=== PATIENT | female | born 1945 | race Caucasian/White ===

== ENCOUNTER 2018-04-11 20:41 | Emergency (ER) | payer MEDICARE, BC ==
[~2018-04-11] VITALS: Ht 165.1 cm; Wt 59.0 kg
[~2018-04-11 20:41] MED LIST: AMBIEN; ARMOUR THYROID30 MG PO; ATARAX25 MG PO; ELIMITE 5% CREA60 GM EXT; GABAPENTIN300 MG ORAL; HALCION; LEVOFLOXACIN500 MG ORAL; NAPROXEN500 M2 ORAL; PROZAC; RESTORIL7.5 MG PO; SUBUTEX2 MG SL; [UNRECOGNIZED DRUG - OTHER]
[2018-04-11 20:45] VITALS: BP 146/76
--- NOTE | 2018-04-11 21:06 | Emergency Room Report ---
History of Present Illness General Chief Complaint: Skin Rash/Abscess Source: Patient Present Illness HPI Is a 72-year-old female with cardiac history. She presents with chief complaint of a rash and itching all over. Onset several days. She saw her laser specialist the other day. Was prescribed something for eczema. Now the rash started on her legs now throughout her body. Unable to sleep last night because of itching. Benadryl keep her up. No nausea no vomiting. No fever chills. No new medication. Denies any other complaint. Scratching Makes it worse. Allergies: Coded Allergies: PROCHLORPERAZINE (Unverified Allergy, 09/08/13) PROCHLORPERAZINE EDISYLATE (Verified Allergy, Itching, 05/23/12) PROCHLORPERAZINE MALEATE (Verified Allergy, Itching, 05/23/12) Patient History Past Medical History: see triage record, old chart reviewed, CAD Past Surgical History: pacemaker Pertinent Family History: none Social History: Denies: smoking Now: No Immunizations: other Reviewed Nursing Documentation: PMH: Agreed; PSxH: Agreed Nursing Documentation-PMH Hx Cardiac Problems: Yes Hx Pacemaker: Yes - 1999 Hx Cancer: No Hx Gastrointestinal Problems: Yes Hx Neurological Problems: Yes Hx Head Trauma: Yes - Concussions, skull fracture, subdural hematoma Hx Neurologic Surgery: Yes Review of Systems Eye: Denies: eye pain, blurred vision ENT: Denies: ear pain, nose congestion, throat swelling Respiratory: Denies: cough, shortness of breath Cardiovascular: Denies: chest pain, palpitations Gastrointestinal: Denies: abdominal pain, diarrhea, nausea, vomiting Musculoskeletal: Denies: back pain, joint pain Skin: Reports: rash Neurological: Denies: headache, numbness Endocrine: Denies: increased thirst, increased urine Hematologic/Lymphatic: Denies: easy bruising All Other Systems: negative except mentioned in HPI Physical Exam Vital Signs Date Time Temp Pulse Resp B/P (MAP) Pulse Ox O2 Delivery O2 Flow Rate FiO2 04/11/18 20:43 98.3 82 16 146/76 96 Room Air 98.2 vitals normal Sp02 EP Interpretation: reviewed, normal General Appearance: well appearing, no apparent distress, alert Head: normocephalic, atraumatic Eyes: bilateral eye PERRL, bilateral eye EOMI ENT: hearing grossly normal, normal pharynx Neck: full range of motion, supple, no meningismus Respiratory: chest non-tender, lungs clear, normal breath sounds Cardiovascular #1: regular rate, rhythm, no murmur Gastrointestinal: normal bowel sounds, non tender, no mass, no organomegaly, no bruit, non-distended Musculoskeletal: back normal, gait/station normal, normal range of motion Neurologic: alert, oriented x3 Psychiatric: mood/affect normal Skin: warm/dry, other - Patient with scatter small pinpoint petechiae mostly her legs and torso. No purpura. Medical Decision Making Diagnostic Impression: Primary Impression: Other pruritus Additional Impression: Rash and other nonspecific skin eruption ER Course Patient with itching and small scattered petechial rash. CBC showed elevation of monocyte count, eosinophil count. This may point towards allergic/viral etiology. No evidence of anaphylaxis. No evidence of meningitis. No bacterial infection. We'll discharge home. Last Vital Signs Date Time Temp Pulse Resp B/P (MAP) Pulse Ox O2 Delivery O2 Flow Rate FiO2 04/11/18 20:45 98.2 85 16 146/76 96 Room Air 98.2 Status: improved Disposition: HOME, SELF-CARE Condition: Stable Scripts Prednisone* (PREDNISONE*) 20 Mg Tablet 40 MG ORAL DAILY for 5 Days, TAB Prov: LONI AGUIRRE M.D. 04/11/18 Loratadine (CLARITIN) 10 Mg Capsule 10 MG ORAL DAILY, #30 CAP Prov: LONI AGUIRRE M.D. 04/11/18 Additional Instructions: Follow-up with your laser specialist on Thursday. Return if symptom worsen. LONI AGUIRRE M.D. Apr 11, 2018 21:06
[2018-04-11] MEDS ORDERED: Solu-MEDROL 125mg Inj IVP ONE (21:15)
[2018-04-11] MEDS ORDERED: HydrOXYzine 50mg tab ORAL ONE (21:15)
[2018-04-11 21:25] LABS: BASOPHILS % (AUTO) 2.4 % (0.0-2.0); HEMOGLOBIN 14.7 G/DL (12.0-16.0); LYMPHOCYTES % (AUTO) 15.6 % (20.0-45.0); MEAN CORPUSCULAR VOLUME 88 FL (80-99); MONOCYTES % (AUTO) 14.3 % (1.0-10.0); NEUTROPHILS % (AUTO) 61.7 % (45.0-75.0); PLATELET COUNT 332 K/UL (150-450); RED BLOOD COUNT 4.55 M/UL (4.20-5.40); RED CELL DISTRIBUTION WIDTH 10.4 % (11.6-14.8); WHITE BLOOD COUNT 6.1 K/UL (4.8-10.8)
[2018-04-11 21:36] LABS: ANION GAP 8 mmol/L (5-15); BLOOD UREA NITROGEN 8 mg/dL (7-18); CALCIUM 9.9 MG/DL (8.5-10.1); CARBON DIOXIDE 29 MMOL/L (21-32); CHLORIDE 100 MMOL/L (98-107); CREATININE 0.6 MG/DL (0.55-1.30); POTASSIUM 4.2 MMOL/L (3.5-5.1); SODIUM 137 MMOL/L (136-145)
[2018-04-11 21:41] LABS: ALANINE AMINOTRANSFERASE 25 U/L (12-78); ALBUMIN 4.3 G/DL (3.4-5.0); ALBUMIN/GLOBULIN RATIO 1.2 (1.0-2.7); ALKALINE PHOSPHATASE 83 U/L (46-116); ASPARTATE AMINO TRANSFERASE 45 U/L (15-37); BILIRUBIN,TOTAL 0.6 MG/DL (0.2-1.0)
[2018-04-11] MEDS ORDERED: PREDNISONE20 MG ORAL (21:50)
[2018-04-11] MEDS ORDERED: CLARITIN10 M2 ORAL (21:50)
[2018-04-11 21:54] VITALS: BP 146/76
== END 2018-04-11 21:55 | disposition home or self-care (01) ==
LOC: EMR 21:24
DX: L29.8 Other pruritus (principal); R21 Rash and other nonspecific skin eruption; Z88.8 Allergy status to other drugs, medicaments and biological substances; Z95.0 Presence of cardiac pacemaker; I99.8 Other disorder of circulatory system; Z98.890 Other specified postprocedural states
CPT/HCPCS: 36415; 80053; 85025; 96374; 99284; J2930

== ENCOUNTER 2019-04-12 19:16 | Emergency (ER) | payer MEDICARE, BC ==
[~2019-04-12] VITALS: Ht 165.1 cm; Wt 59.0 kg
[~2019-04-12 19:16] MED LIST changes: +CLARITIN10 M2 ORAL; +PREDNISONE20 MG ORAL
[2019-04-12 19:45] VITALS: BP 154/82
--- NOTE | 2019-04-12 20:11 | Emergency Room Report ---
History of Present Illness General Chief Complaint: Abdominal Pain Source: Patient Present Illness HPI Disclaimer: Please note that this report is being documented using [employer] technology. This can lead to erroneous entry secondary to incorrect interpretation by the dictating instrument. HPI: 73-year-old female currently undergoing treatment for lymphoma presents for evaluation of abdominal pain. Patient noted periumbilical pain over the last few days that intensified to a 10/10 today. She was previously seen last week at her PMDs office complaining of bilateral lower flank pain however blood work and urinalysis were unremarkable. She went to an PROCESSING SUPERVISOR earlier today for some lower pelvic and periumbilical pain where an ultrasound was performed showing no significant abnormalities. Her pain became worse and she was directed to the emergency department at the request of her physician. She denies any recent fevers, chills, chest pain, shortness of breath. Denies vomiting or diarrhea. She does note nausea and inability to eat. Currently her pain is minimal however states that it was 10 out of 10 earlier. PMH: Hepatitis A, B, C status post treatment. PSH: hip replacement Allergies: Phenergan Social Hx: Denies drug or alcohol abuse Allergies: Coded Allergies: PROCHLORPERAZINE (Unverified Allergy, Unknown, 04/12/19) PROCHLORPERAZINE EDISYLATE (Verified Allergy, Unknown, Itching, 04/12/19) PROCHLORPERAZINE MALEATE (Verified Allergy, Unknown, Itching, 04/12/19) Patient History Now: No Nursing Documentation-PMH Past Medical History: No History, Except For Hx Cardiac Problems: Yes Hx Pacemaker: Yes - 1999 Hx Cancer: No Hx Gastrointestinal Problems: Yes Hx Neurological Problems: Yes Hx Head Trauma: Yes - Concussions, skull fracture, subdural hematoma Hx Neurologic Surgery: Yes Review of Systems All Other Systems: negative except mentioned in HPI Physical Exam Vital Signs Date Time Temp Pulse Resp B/P (MAP) Pulse Ox O2 Delivery O2 Flow Rate FiO2 04/12/19 19:17 97.9 62 18 154/82 (106) 98 Room Air General: Awake and alert, no acute distress HEENT: NC/AT. EOMI. Cardiovascular: RRR. S1 and S2 normal. No murmur appreciated Resp: Normal work of breathing. No cough, wheezing or crackles appreciated Abdomen: Abdomen is soft, nondistended. Only mild tenderness over the lower quadrants and periumbilical region bilaterally. No rebound. No Rovsing sign. No pain with percussion Skin: Intact. No abrasions, laceration or rash over the exposed skin MSK: Normal tone and bulk. Moving all extremities. No obvious deformity. Neuro: Awake and alert. Mentating appropriately. Medical Decision Making Diagnostic Impression: Primary Impression: Abdominal pain ER Course 73-year-old female presents for evaluation of abdominal pain. Differential includes but is not limited to obstruction, gastritis, gastroenteritis, metastasis, constipation, appendicitis, cholecystitis, diverticulitis. Patient is already undergone a pelvic ultrasound without significant findings. Will obtain a CT scan of the abdomen with IV contrast. Lab work is pending. The patient's pain is currently well controlled. She will receive IV fluids. Laboratory Tests Test 04/12/19 19:30 White Blood Count 5.6 K/UL (4.8-10.8) Red Blood Count 4.37 M/UL (4.20-5.40) Hemoglobin 13.8 G/DL (12.0-16.0) Hematocrit 38.5 % (37.0-47.0) Mean Corpuscular Volume 88 FL (80-99) Mean Corpuscular Hemoglobin 31.7 PG (27.0-31.0) H Mean Corpuscular Hemoglobin Concent 36.0 G/DL (32.0-36.0) Red Cell Distribution Width 10.5 % (11.6-14.8) L Platelet Count 247 K/UL (150-450) Mean Platelet Volume 5.3 FL (6.5-10.1) L Neutrophils (%) (Auto) 69.1 % (45.0-75.0) Lymphocytes (%) (Auto) 13.1 % (20.0-45.0) L Monocytes (%) (Auto) 12.0 % (1.0-10.0) H Eosinophils (%) (Auto) 3.0 % (0.0-3.0) Basophils (%) (Auto) 2.8 % (0.0-2.0) H Urine Color Pale yellow Urine Appearance Clear Urine pH 8 (4.5-8.0) Urine Specific [place] 1.010 (1.005-1.035) Urine Protein Negative (NEGATIVE) Urine Glucose (UA) Negative (NEGATIVE) Urine Ketones Negative (NEGATIVE) Urine Blood Negative (NEGATIVE) Urine Nitrite Negative (NEGATIVE) Urine Bilirubin Negative (NEGATIVE) Urine Urobilinogen Normal MG/DL (0.0-1.0) Urine Leukocyte Esterase Negative (NEGATIVE) Sodium Level 143 MMOL/L (136-145) Potassium Level 3.6 MMOL/L (3.5-5.1) Chloride Level 105 MMOL/L (98-107) Carbon Dioxide Level 26 MMOL/L (21-32) Anion Gap 12 mmol/L (5-15) Blood Urea Nitrogen 6 mg/dL (7-18) L Creatinine 0.7 MG/DL (0.55-1.30) Estimate Glomerular Filtration Rate mL/min (>60) Glucose Level 132 MG/DL (74-106) H Calcium Level 9.6 MG/DL (8.5-10.1) Total Bilirubin 0.5 MG/DL (0.2-1.0) Aspartate Amino Transferase (AST) 27 U/L (15-37) Alanine Aminotransferase (ALT) 22 U/L (12-78) Alkaline Phosphatase 85 U/L (46-116) Total Protein 7.1 G/DL (6.4-8.2) Albumin 4.0 G/DL (3.4-5.0) Globulin 3.1 g/dL Albumin/Globulin Ratio 1.3 (1.0-2.7) Lipase 76 U/L (73-393) Last Vital Signs Date Time Temp Pulse Resp B/P (MAP) Pulse Ox O2 Delivery O2 Flow Rate FiO2 04/12/19 19:45 97.9 61 18 154/82 98 Room Air Status: improved Reevaluation Impression CT scan found no evidence of obstruction, mass, appendicitis or other acute significant pathology. There was some hepatic congestion though this may be secondary to the patient's previous hepatitis infections. She can follow-up with her outpatient. She did have a moderate amount of stool burden and may be expensing gas pain or constipation pain. Will start on MiraLAX and will discharge home with close follow-up with PMD and her veneer jointer helper. We discussed reasons to return to the emergency department. She understands and agrees with this treatment plan. Disposition: HOME, SELF-CARE Condition: Stable Scripts Polyethylene Glycol 3350* (MIRALAX*) 17 Gm Powd.pack 17 GM ORAL DAILY for 10 Days, PACKET Prov: James Burgos MD 04/12/19 James Burgos MD Apr 12, 2019 20:11
[2019-04-12] MEDS ORDERED: Isovue-300 100ml vial INJ PRN (20:15)
[2019-04-12] MEDS ORDERED: Morphine Sulfate 4mg/ml Inj (IV USE ONLY) IVP ONE (20:15)
[2019-04-12 20:16] LABS: BASOPHILS % (AUTO) 2.8 % (0.0-2.0); HEMATOCRIT 38.5 % (37.0-47.0); HEMOGLOBIN 13.8 G/DL (12.0-16.0); LYMPHOCYTES % (AUTO) 13.1 % (20.0-45.0); MEAN CORPUSCULAR VOLUME 88 FL (80-99); NEUTROPHILS % (AUTO) 69.1 % (45.0-75.0); PLATELET COUNT 247 K/UL (150-450); RED BLOOD COUNT 4.37 M/UL (4.20-5.40); RED CELL DISTRIBUTION WIDTH 10.5 % (11.6-14.8); WHITE BLOOD COUNT 5.6 K/UL (4.8-10.8)
[2019-04-12 20:17] LABS: APPEARANCE,URINE CLEAR; BILIRUBIN, URINE NEGATIVE (NEGATIVE); COLOR,URINE PALE YELLOW; GLUCOSE, URINE (UA) NEGATIVE (NEGATIVE); KETONES,URINE NEGATIVE (NEGATIVE); LEUKOCYTE ESTERASE ,URINE NEGATIVE (NEGATIVE); NITRITE,URINE NEGATIVE (NEGATIVE); PH,URINE 8 (4.5-8.0); PROTEIN,URINE NEGATIVE (NEGATIVE); UROBILINOGEN,URINE NORMAL MG/DL (0.0-1.0)
[2019-04-12 20:20] LABS: ANION GAP 12 mmol/L (5-15); BLOOD UREA NITROGEN 6 mg/dL (7-18); CALCIUM 9.6 MG/DL (8.5-10.1); CARBON DIOXIDE 26 MMOL/L (21-32); CHLORIDE 105 MMOL/L (98-107); CREATININE 0.7 MG/DL (0.55-1.30); POTASSIUM 3.6 MMOL/L (3.5-5.1); SODIUM 143 MMOL/L (136-145)
[2019-04-12 20:26] LABS: ALANINE AMINOTRANSFERASE 22 U/L (12-78); ALBUMIN/GLOBULIN RATIO 1.3 (1.0-2.7); ALKALINE PHOSPHATASE 85 U/L (46-116); ASPARTATE AMINO TRANSFERASE 27 U/L (15-37); BILIRUBIN,TOTAL 0.5 MG/DL (0.2-1.0)
--- NOTE | 2019-04-12 21:00 | Diagnostic Imaging Report ---
Clinical Indication: Abdominal pain, periumbilical pain over the last few days, 10 out of 10, history of treatment for lymphoma Technique: No oral contrast utilized, per emergency room physician request IV administration nonionic contrast. Venous phase spiral acquisition obtained through the abdomen and pelvis. Multiplanar reconstructions were generated. Total dose length product 552.58 mGycm. CTDIvol(s) 11.66 mGy. Dose reduction achieved using automated exposure control Comparison: none Findings: The appendix is normal. No evidence of diverticulosis or diverticulitis. Distal small bowel loops are mildly prominent, fluid-filled. No ricky small bowel distention. No free or loculated intraperitoneal gas or fluid is evident. There is a small sliding-type hiatal hernia. Distal esophagus and stomach otherwise unremarkable. There is wall thickening and slight focal distention of the distal duodenum. The liver demonstrates a cyst in segment IVb. The parenchyma is heterogeneous. There is slight distention of the inferior vena cava and hepatic veins The gallbladder, bile ducts, pancreas, spleen, right adrenal are unremarkable. The left adrenal is diffusely bulky without discrete mass. The kidneys are unremarkable. No renal or ureteral calculi, hydronephrosis, or hydroureter. Note, however, the portions of the pelvis are nearly completely obscured by streak artifact from bilateral hip prosthesis, so pathology in the pelvis, the ruled out. Pacemaker lead is seen within the heart. The included lung bases demonstrate posterior dependent atelectatic changes. The bones demonstrate lumbar scoliotic deformity which is mild. There are degenerative spondylosis changes Impression: Equivocal mild focal wall thickening and focal distention of the distal duodenum, could indicate duodenitis. Correlate with clinical findings Distention of the inferior vena cava and hepatic veins. Heterogeneous hepatic parenchyma could be related to timing of contrast administration, but could indicate hepatic congestion No acute process otherwise Bilateral hip prostheses. The straw streak artifact in the pelvis which may obscure pathology Other findings as noted, including left lobe hepatic cyst, nonspecific left adrenal hypertrophy, pacemaker, scoliosis, degenerative spondylosis This essentially agrees with the preliminary interpretation provided overnight by [facility] teleradiology service. The CT scanner at [facility] is accredited by the [employer] and the scans are performed using protocols designed to limit radiation exposure to as low as reasonably achievable to attain images of sufficient resolution adequate for diagnostic evaluation.
[2019-04-12] MEDS ORDERED: MIRALAX17 G2 ORAL (21:31)
[2019-04-12 21:46] VITALS: BP 154/82
== END 2019-04-12 21:45 | disposition home or self-care (01) ==
LOC: EDBD 19:16 → EMR 20:00
DX: R10.9 Unspecified abdominal pain (principal); Z95.0 Presence of cardiac pacemaker; Z88.8 Allergy status to other drugs, medicaments and biological substances; R11.0 Nausea; Z96.649 Presence of unspecified artificial hip joint; K75.89 Other specified inflammatory liver diseases
CPT/HCPCS: 36415; 74177; 80053; 81003; 83690; 85025; 96361; 96374; 99284; J2270; Q9967

== ENCOUNTER 2019-09-19 10:38 | Inpatient (IN) | payer MEDICARE, BC ==
[~2019-09-19] VITALS: Ht 160 cm; Wt 59.0 kg
[~2019-09-19 10:38] MED LIST changes: +MIRALAX17 G2 ORAL
[2019-09-19 11:00] VITALS: BP 148/102
[2019-09-19 12:30] LABS: HEMOGLOBIN 15.4 G/DL (12.0-16.0); MEAN CORPUSCULAR VOLUME 90 FL (80-99); PLATELET COUNT 293 K/UL (150-450); RED BLOOD COUNT 4.79 M/UL (4.20-5.40); RED CELL DISTRIBUTION WIDTH 10.9 % (11.6-14.8); WHITE BLOOD COUNT 7.3 K/UL (4.8-10.8)
[2019-09-19] MEDS ORDERED: Hydromorphone 0.5mg/0.5ml inj IVP ONE ×2 (12:30→15:45)
--- NOTE | 2019-09-19 12:39 | Diagnostic Imaging Report ---
Indication: Nausea vomiting Technique: Contiguous 5 mm thick transaxial imaging of the head obtained in a Siemens Sensation [address] scanner. Soft tissue and bone windows generated. Automatic Exposure Control was utilized. Total Dose length Product (DLP): [address] Dose Index Volume (CTDIvol): 60 mGy Comparison: 01/13/2009 Findings: There is mild prominence of the ventricles, basal cisterns, and cerebral sulci consistent with atrophy. Mild, nonspecific, white matter hypoattenuation is noted throughout the brain consistent with chronic small vessel disease. There is no midline shift, edema, acute hemorrhage, mass effect, or abnormal extra-axial fluid collections. Bones are unremarkable. Impression: No acute intracranial bleed, mass effect or edema. Mild atrophy of the brain. Nonspecific white matter hypoattenuation probably due to chronic small vessel disease. The CT scanner at [facility] is accredited by the [employer] and the scans are performed using dose optimization techniques as appropriate to a performed exam including Automatic Exposure control.
--- NOTE | 2019-09-19 12:43 | Diagnostic Imaging Report ---
INDICATION: Abdominal pain TECHNIQUE: Continuous helical transaxial imaging of the abdomen and pelvis was obtained from the lung bases to the pubic symphysis. No intravenous contrast was administered. Coronal 2-D reformats were also obtained. Automatic Exposure Control was utilized. Total Dose length Product (DLP): 795.[address] Dose Index Volume (CTDIvol): 14.8 mGy Comparison: none FINDINGS: Lungs: The visualized lung bases are clear. Hiatal hernia is present. Pacemaker noted. Liver: There is a focus of calcification at the dome of the liver. Another punctate focus noted in the central part of the liver. Gallbladder/biliary system: No gallstones are identified. There is no evidence of intrahepatic or extrahepatic biliary ductal dilatation. Spleen: Unremarkable Pancreas: Unremarkable Kidneys/Bladder: No definite stone or hydronephrosis are identified. The urinary bladder is unremarkable.. Adrenal glands: There is prominence of the left adrenal gland. Bowel: There is diffuse underdistention of the colon. The appendix is normal. Bowel gas pattern is nonobstructive. Aorta/IVC: Mild calcification of aorta and iliac arteries demonstrated. Peritoneum: There is no free fluid. The lower pelvis is obscured due to bilateral hip prostheses. Urinary bladder is obscured.. Bones: There is a scoliosis of the lumbar spine convex to the left. There is narrowing of intervertebral discs and accompanying endplate osteophyte formation. Hypertrophied facet joints also demonstrated. Bones are osteopenic IMPRESSION: No acute findings appreciated. Hiatal hernia Calcifications within the liver nonspecific. This could be due to old granulomatous disease. Prominence of the left adrenal gland. Consider follow-up or MRI follow-up. Atherosclerotic disease Bilateral hip prostheses with resultant spray artifact limiting evaluation of the pelvis. Degenerative changes of the spine. Scoliosis. Note: Evaluation of solid organs is limited on non contrast imaging. The CT scanner at [facility] is accredited by the [employer] and the scans are performed using dose optimization techniques as appropriate to a performed exam including Automatic Exposure control.
[2019-09-19 13:02] LABS: APPEARANCE,URINE CLEAR; BILIRUBIN, URINE NEGATIVE (NEGATIVE); COLOR,URINE PALE YELLOW; GLUCOSE, URINE (UA) 1+ (NEGATIVE); KETONES,URINE 4+ (NEGATIVE); LEUKOCYTE ESTERASE ,URINE NEGATIVE (NEGATIVE); NITRITE,URINE NEGATIVE (NEGATIVE); PH,URINE 7 (4.5-8.0); PROTEIN,URINE NEGATIVE (NEGATIVE); UROBILINOGEN,URINE NORMAL MG/DL (0.0-1.0)
[2019-09-19 13:09] LABS: ANION GAP 19 mmol/L (5-15); BLOOD UREA NITROGEN 14 mg/dL (7-18); CALCIUM 10.1 MG/DL (8.5-10.1); CARBON DIOXIDE 23 MMOL/L (21-32); CHLORIDE 98 MMOL/L (98-107); CREATININE 0.6 MG/DL (0.55-1.30); POTASSIUM 3.6 MMOL/L (3.5-5.1); SODIUM 140 MMOL/L (136-145)
[2019-09-19 13:21] LABS: ALANINE AMINOTRANSFERASE 25 U/L (12-78); ALBUMIN 4.4 G/DL (3.4-5.0); ALBUMIN/GLOBULIN RATIO 1.4 (1.0-2.7); ALKALINE PHOSPHATASE 71 U/L (46-116); ASPARTATE AMINO TRANSFERASE 45 U/L (15-37); BILIRUBIN,TOTAL 0.8 MG/DL (0.2-1.0)
--- NOTE | 2019-09-19 15:31 | Emergency Room Report ---
History of Present Illness General Chief Complaint: Nausea Source: Patient Present Illness HPI Patient is a 74-year-old female who presents to the ER complaining of abdominal pain nausea and vomiting since this morning. She has bilious vomiting at her bedside. She denies any fever but complains of chills. She denies any chest pain or shortness of breath. She denies any recent travel. She denies any diarrhea or constipation. Patient does have a history of a tubal surgery many years ago. Allergies: Coded Allergies: PROCHLORPERAZINE (Unverified Allergy, Unknown, 04/12/19) PROCHLORPERAZINE EDISYLATE (Verified Allergy, Unknown, Itching, 04/12/19) PROCHLORPERAZINE MALEATE (Verified Allergy, Unknown, Itching, 04/12/19) Patient History Reviewed Nursing Documentation: PMH: Agreed; PSxH: Agreed Nursing Documentation-PMH Hx Cardiac Problems: Yes Hx Pacemaker: Yes - 1999 Hx Cancer: No Hx Gastrointestinal Problems: Yes Hx Neurological Problems: Yes Hx Head Trauma: Yes - Concussions, skull fracture, subdural hematoma Hx Neurologic Surgery: Yes Review of Systems All Other Systems: negative except mentioned in HPI Physical Exam Vital Signs Date Time Temp Pulse Resp B/P (MAP) Pulse Ox O2 Delivery O2 Flow Rate FiO2 09/19/19 10:42 97.9 62 16 190/104 (132) 98 Room Air Sp02 EP Interpretation: reviewed, normal General Appearance: alert, GCS 15, non-toxic, moderate distress, other - Repetitive vomiting Head: normocephalic, atraumatic Eyes: bilateral eye normal inspection, bilateral eye PERRL ENT: hearing grossly normal, normal pharynx, no angioedema, normal voice Neck: full range of motion, supple/symm/no masses Respiratory: chest non-tender, lungs clear, normal breath sounds, speaking full sentences Cardiovascular #1: regular rate, rhythm, no edema Cardiovascular #2: 2+ carotid (R), 2+ carotid (L), 2+ radial (R), 2+ radial (L) , 2+ dorsalis pedis (R), 2+ dorsalis pedis (L) Gastrointestinal: normal bowel sounds, soft, non-distended, no guarding, no rebound, other - Epigastric and periumbilical tenderness to palpation. Rectal: deferred Genitourinary: normal inspection, no CVA tenderness Musculoskeletal: back normal, normal range of motion, calf tenderness, gait/ station normal, non-tender Neurologic: alert, motor strength/tone normal, oriented x3, sensory intact, responsive, speech normal Psychiatric: judgement/insight normal, memory normal, mood/affect normal, no suicidal/homicidal ideation Reflexes: 3+ bicep (R), 3+ bicep (L), 3+ tricep (R), 3+ tricep (L), 3+ knee (R) , 3+ knee (L) Lymphatic: no adenopathy Medical Decision Making Diagnostic Impression: Primary Impression: Abdominal pain Additional Impressions: Bilious vomiting Intractable abdominal pain ER Course Given IV fluids and pain medicine and antiemetics. Patient complains of persistent pain, and nausea. Patient's labs demonstrate no significant acute abnormalities. Patient CT demonstrates no intra-abdominal pathology. I spoke with meeting the patient. Laboratory Tests Test 09/19/19 11:22 09/19/19 12:30 White Blood Count 7.3 K/UL (4.8-10.8) Red Blood Count 4.79 M/UL (4.20-5.40) Hemoglobin 15.4 G/DL (12.0-16.0) Hematocrit 43.0 % (37.0-47.0) Mean Corpuscular Volume 90 FL (80-99) Mean Corpuscular Hemoglobin 32.2 PG (27.0-31.0) H Mean Corpuscular Hemoglobin Concent 35.9 G/DL (32.0-36.0) Red Cell Distribution Width 10.9 % (11.6-14.8) L Platelet Count 293 K/UL (150-450) Mean Platelet Volume 5.7 FL (6.5-10.1) L Neutrophils (%) (Auto) % (45.0-75.0) Lymphocytes (%) (Auto) % (20.0-45.0) Monocytes (%) (Auto) % (1.0-10.0) Eosinophils (%) (Auto) % (0.0-3.0) Basophils (%) (Auto) % (0.0-2.0) Differential Total Cells Counted 100 Neutrophils % (Manual) 90 % (45-75) H Lymphocytes % (Manual) 8 % (20-45) L Monocytes % (Manual) 2 % (1-10) Eosinophils % (Manual) 0 % (0-3) Basophils % (Manual) 0 % (0-2) Band Neutrophils 0 % (0-8) Platelet Estimate Adequate Platelet Morphology Normal Red Blood Cell Morphology Normal Sodium Level 140 MMOL/L (136-145) Potassium Level 3.6 MMOL/L (3.5-5.1) Chloride Level 98 MMOL/L (98-107) Carbon Dioxide Level 23 MMOL/L (21-32) Anion Gap 19 mmol/L (5-15) H Blood Urea Nitrogen 14 mg/dL (7-18) Creatinine 0.6 MG/DL (0.55-1.30) Estimate Glomerular Filtration Rate mL/min (>60) Glucose Level 149 MG/DL (74-106) H Calcium Level 10.1 MG/DL (8.5-10.1) Magnesium Level 1.9 MG/DL (1.8-2.4) Total Bilirubin 0.8 MG/DL (0.2-1.0) Aspartate Amino Transferase (AST) 45 U/L (15-37) H Alanine Aminotransferase (ALT) 25 U/L (12-78) Alkaline Phosphatase 71 U/L (46-116) Troponin I 0.000 ng/mL (0.000-0.056) Total Protein 7.6 G/DL (6.4-8.2) Albumin 4.4 G/DL (3.4-5.0) Globulin 3.2 g/dL Albumin/Globulin Ratio 1.4 (1.0-2.7) Lipase 109 U/L (73-393) Urine Color Pale yellow Urine Appearance Clear Urine pH 7 (4.5-8.0) Urine Specific [place] 1.010 (1.005-1.035) Urine Protein Negative (NEGATIVE) Urine Glucose (UA) 1+ (NEGATIVE) H Urine Ketones 4+ (NEGATIVE) H Urine Blood Negative (NEGATIVE) Urine Nitrite Negative (NEGATIVE) Urine Bilirubin Negative (NEGATIVE) Urine Urobilinogen Normal MG/DL (0.0-1.0) Urine Leukocyte Esterase Negative (NEGATIVE) Microbiology Date/Time Source Procedure Growth Status 09/19/19 12:17 Nasal Nares - Final Complete 09/19/19 12:17 Nasal Nares - Final Complete EKG Diagnostic Results EKG Time: 11:38 EP Interpretation: Deshaun VILLALOBOS Rate: normal Rhythm: NSR ST Segments: no acute changes ASA given to the pt in ED: No Rhythm Strip Diag. Results Rhythm Strip Time: 15:30 EP Interpretation: yes Rate: 63 Rhythm: NSR, no PVC's, no ectopy Last Vital Signs Date Time Temp Pulse Resp B/P (MAP) Pulse Ox O2 Delivery O2 Flow Rate FiO2 09/19/19 10:42 97.9 62 16 190/104 (132) 98 Room Air Disposition: ADMITTED INPATIENT Condition: Improved Physician Consult: Nguyen Referrals: NON PHYSICIAN (PCP) Suri Meade M.D. Sep 19, 2019 15:31
[2019-09-19] MEDS ORDERED: Pantoprazole Inj IVP ONE (15:45)
[2019-09-19] MEDS ORDERED: Metoclopramide 10mg/2ml Inj IVP ONE (16:15)
[2019-09-19 16:54] VITALS: BP 150/79
[2019-09-19] MEDS ORDERED: CARISOPRODOL350 MG ORAL ×2 (17:29→20:07)
[2019-09-19] MEDS ORDERED: GABAPENTIN300 MG ORAL ×2 (17:29→20:07)
[2019-09-19 17:40] VITALS: BP 134/78
[2019-09-19] MEDS ORDERED: Hydromorphone 0.5mg/0.5ml inj IVP PRN (18:15)
[2019-09-19] MEDS ORDERED: Albuterol/Ipratropium 3ml neb HHN PRN (18:15)
[2019-09-19] MEDS: HYDROmorphone 1mg/ml Carpuject IVP PRN (18:52)
[2019-09-19 20:00] VITALS: BP 130/78
[2019-09-19] MEDS ORDERED: XANAX0.25 MG ORAL (20:07)
[2019-09-19] MEDS ORDERED: LEVOTHYROXINE75 MCG ORAL (20:07)
[2019-09-19] MEDS ORDERED: BELSOMRA20 MG PO (20:07)
[2019-09-19] MEDS ORDERED: IBUPROFEN600 MG ORAL (20:07)
[2019-09-19] MEDS ORDERED: QUETIAPINE FUMA50 MG ORAL (20:07)
[2019-09-19] MEDS ORDERED: ROBAXIN-500MG ORAL (20:07)
[2019-09-19] MEDS ORDERED: KLONOPIN1 MG ORAL (20:07)
[2019-09-19] MEDS ORDERED: BUSPIRONE HCL15 MG ORAL (20:07)
[2019-09-19] MEDS ORDERED: BUPRENORPHINE HC8 MG SL (20:07)
[2019-09-19] MEDS: Enoxaparin 40mg Inj SUBQ SCH (20:56)
[2019-09-19] MEDS ORDERED: Milk of Magnesia 30ml Ud ORAL PRN (21:00)
[2019-09-19] MEDS: NovoLOG Insulin Flexpen SUBQ SCH (21:00)
[2019-09-19] MEDS ORDERED: Metoclopramide 10mg/2ml Inj IVP PRN (21:15)
[2019-09-19] MEDS: Albuterol/Ipratropium 3ml neb HHN SCH (23:00)
[2019-09-20] VITALS (7 sets, daily range): BP systolic 124–165; BP diastolic 61–99
[2019-09-20] MEDS: Albuterol/Ipratropium 3ml neb HHN SCH ×6 (00:59→20:30)
[2019-09-20] MEDS: ALPRAZolam 0.25mg tab ORAL PRN (05:12)
[2019-09-20] MEDS: HYDROmorphone 1mg/ml Carpuject IVP PRN ×4 (05:46→19:07)
[2019-09-20] MEDS: NovoLOG Insulin Flexpen SUBQ SCH ×2 (06:30→12:46)
[2019-09-20 07:25] LABS: ALANINE AMINOTRANSFERASE 22 U/L (12-78); ALBUMIN 3.2 G/DL (3.4-5.0); ALBUMIN/GLOBULIN RATIO 1.2 (1.0-2.7); ALKALINE PHOSPHATASE 57 U/L (46-116); ANION GAP 10 mmol/L (5-15); ASPARTATE AMINO TRANSFERASE 23 U/L (15-37); BILIRUBIN,TOTAL 0.5 MG/DL (0.2-1.0); BLOOD UREA NITROGEN 11 mg/dL (7-18); CALCIUM 8.5 MG/DL (8.5-10.1); CARBON DIOXIDE 24 MMOL/L (21-32); CHLORIDE 106 MMOL/L (98-107); CHOLESTEROL 162 MG/DL (< 200); CREATININE 0.7 MG/DL (0.55-1.30); HDL CHOLESTEROL 70 MG/DL (40-60); POTASSIUM 2.8 MMOL/L (3.5-5.1); SODIUM 140 MMOL/L (136-145); TRIGLYCERIDES 72 MG/DL (30-150)
[2019-09-20 07:36] LABS: EOSINOPHILS % (AUTO) 0.3 % (0.0-3.0); HEMATOCRIT 36.2 % (37.0-47.0); HEMOGLOBIN 12.9 G/DL (12.0-16.0); LYMPHOCYTES % (AUTO) 21.2 % (20.0-45.0); MEAN CORPUSCULAR VOLUME 90 FL (80-99); MONOCYTES % (AUTO) 14.4 % (1.0-10.0); PLATELET COUNT 263 K/UL (150-450); RED BLOOD COUNT 4.04 M/UL (4.20-5.40); WHITE BLOOD COUNT 6.3 K/UL (4.8-10.8)
[2019-09-20] MEDS: BusPIRone 5mg Tab ORAL SCH ×2 (09:46→18:28)
[2019-09-20] MEDS: Methocarbamol 500mg tab ORAL SCH ×3 (09:47→18:29)
[2019-09-20] MEDS ORDERED: HydrALAZINE 25mg tab ORAL PRN (10:15)
[2019-09-20] MEDS ORDERED: DIGESTIVE ENZY1 EACH PO (12:41)
[2019-09-20] MEDS: Dicyclomine HCl 10mg/5ml oral soln ORAL PRN ×2 (12:44→21:39)
[2019-09-20] MEDS ORDERED: Tubing IV Secondary IV ONE (14:34)
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
[2019-09-20] MEDS: [UNRECOGNIZED DRUG - OTHER] ORAL SCH (17:31)
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
[2019-09-20] MEDS ORDERED: SYNTHROID100 MCG ORAL (19:01)
[2019-09-20] MEDS ORDERED: METHOCARBAMOL750 MG ORAL (19:01)
[2019-09-20] MEDS: Enoxaparin 40mg Inj SUBQ SCH (20:40)
[2019-09-20] MEDS ORDERED: HYDROmorphone 1mg/ml Carpuject IVP SCH (22:00)
[2019-09-21] VITALS: BP 146/83
[2019-09-21] MEDS: HYDROmorphone 1mg/ml Carpuject IVP PRN (02:14)
[2019-09-21] MEDS: Albuterol/Ipratropium 3ml neb HHN SCH ×4 (02:43→15:00)
[2019-09-21] MEDS: ALPRAZolam 0.25mg tab ORAL PRN (03:19)
[2019-09-21 03:27] VITALS: BP 127/78
[2019-09-21 05:28] LABS: BASOPHILS % (AUTO) 2.1 % (0.0-2.0); EOSINOPHILS % (AUTO) 3.2 % (0.0-3.0); HEMATOCRIT 33.6 % (37.0-47.0); HEMOGLOBIN 12.2 G/DL (12.0-16.0); LYMPHOCYTES % (AUTO) 27.5 % (20.0-45.0); MEAN CORPUSCULAR VOLUME 88 FL (80-99); MONOCYTES % (AUTO) 16.5 % (1.0-10.0); NEUTROPHILS % (AUTO) 50.6 % (45.0-75.0); PLATELET COUNT 205 K/UL (150-450); RED BLOOD COUNT 3.83 M/UL (4.20-5.40); RED CELL DISTRIBUTION WIDTH 10.8 % (11.6-14.8); WHITE BLOOD COUNT 5.3 K/UL (4.8-10.8)
[2019-09-21 05:50] LABS: ALANINE AMINOTRANSFERASE 17 U/L (12-78); ALBUMIN 3.2 G/DL (3.4-5.0); ALBUMIN/GLOBULIN RATIO 1.3 (1.0-2.7); ALKALINE PHOSPHATASE 48 U/L (46-116); ANION GAP 7 mmol/L (5-15); ASPARTATE AMINO TRANSFERASE 23 U/L (15-37); BILIRUBIN,TOTAL 0.3 MG/DL (0.2-1.0); BLOOD UREA NITROGEN 5 mg/dL (7-18); CALCIUM 8.3 MG/DL (8.5-10.1); CARBON DIOXIDE 29 MMOL/L (21-32); CHLORIDE 105 MMOL/L (98-107); CREATININE 0.5 MG/DL (0.55-1.30); POTASSIUM 3.8 MMOL/L (3.5-5.1); SODIUM 141 MMOL/L (136-145)
[2019-09-21] MEDS ORDERED: [UNRECOGNIZED DRUG - OTHER] ORAL SCH (06:30)
[2019-09-21] MEDS: [UNRECOGNIZED DRUG - OTHER] ORAL SCH ×2 (06:30→11:42)
[2019-09-21 08:00] VITALS: BP 162/93
[2019-09-21] MEDS: Methocarbamol 500mg tab ORAL SCH ×2 (09:19→12:03)
[2019-09-21] MEDS: BusPIRone 5mg Tab ORAL SCH (09:19)
--- NOTE | 2019-09-21 11:24 | Discharge Instructions ---
Discharge Instructions Discharge Instructions Special Instructions CT abdomen pelvis showed prominence of the left adrenal gland, please obtain an MRI at the request of primary care doctor to further evaluate For Congestive Heart Failure Reminder Report to your physician any weight gain of 5 pounds or more in one week. Thang Cedillo M.D. Sep 21, 2019 11:24
--- NOTE | 2019-09-21 11:27 | GI Progress Note ---
Assessment/Plan Problems: (1) Elevated AST (SGOT) ICD Codes: R74.0 - Nonspecific elevation of levels of transaminase and lactic acid dehydrogenase [LDH] SNOMED: 816389519 (2) Dehydration ICD Codes: E86.0 - Dehydration SNOMED: 23258277 (3) Intractable abdominal pain ICD Codes: R10.9 - Unspecified abdominal pain SNOMED: 90123290 (4) Abdominal pain ICD Codes: R10.9 - Unspecified abdominal pain SNOMED: 30181868 Status: stable Status Narrative Discussed with Dr. Ba. Assessment/Plan Abdominal pain unknown etiology. CT reviewed, unremarkable. Patient scheduled for discharged today Rx for Bentyl given for 7 days, to follow up as outpatient cont bowel regime ppi regular diet The patient was seen and examined at bedside and all new and available data was reviewed in the patients chart. I agree with the above findings, impression and plan. (Patient seen earlier today. Signature stamp does not reflect patient encounter time.). - Galdino Ba MD Subjective Gastrointestinal/Abdominal: Reports: no symptoms Subjective abdominal cramping resolved Objective Last 24 Hour Vital Signs Date Time Temp Pulse Resp B/P (MAP) Pulse Ox O2 Delivery O2 Flow Rate FiO2 09/21/19 09:00 Room Air 09/21/19 08:00 97.5 78 18 162/93 (116) 96 09/21/19 03:27 97.2 64 17 127/78 (94) 98 09/21/19 02:41 Room Air 21 09/21/19 00:59 Room Air 21 09/21/19 00:00 98.2 62 17 146/83 (104) 98 09/20/19 21:00 Room Air 09/20/19 20:30 68 18 98 Room Air 21 09/20/19 20:30 68 18 98 Room Air 21 09/20/19 20:00 99.1 66 18 165/84 (111) 98 09/20/19 19:37 99.1 09/20/19 17:30 149/81 (103) 09/20/19 16:00 98.8 67 18 165/86 (112) 98 09/20/19 12:00 98.6 85 18 137/99 (112) 98 Intake and Output 09/20/19 09/21/19 19:00 07:00 Intake Total 375 ml 1375 ml Balance 375 ml 1375 ml Intake Oral 250 ml IV Total 375 ml 1125 ml # Voids 3 2 # Bowel Movements 1 1 Laboratory Tests Test 09/21/19 05:00 White Blood Count 5.3 K/UL (4.8-10.8) Red Blood Count 3.83 M/UL (4.20-5.40) L Hemoglobin 12.2 G/DL (12.0-16.0) Hematocrit 33.6 % (37.0-47.0) L Mean Corpuscular Volume 88 FL (80-99) Mean Corpuscular Hemoglobin 31.7 PG (27.0-31.0) H Mean Corpuscular Hemoglobin Concent 36.3 G/DL (32.0-36.0) H Red Cell Distribution Width 10.8 % (11.6-14.8) L Platelet Count 205 K/UL (150-450) Mean Platelet Volume 5.4 FL (6.5-10.1) L Neutrophils (%) (Auto) 50.6 % (45.0-75.0) Lymphocytes (%) (Auto) 27.5 % (20.0-45.0) Monocytes (%) (Auto) 16.5 % (1.0-10.0) H Eosinophils (%) (Auto) 3.2 % (0.0-3.0) H Basophils (%) (Auto) 2.1 % (0.0-2.0) H Sodium Level 141 MMOL/L (136-145) Potassium Level 3.8 MMOL/L (3.5-5.1) Chloride Level 105 MMOL/L (98-107) Carbon Dioxide Level 29 MMOL/L (21-32) Anion Gap 7 mmol/L (5-15) Blood Urea Nitrogen 5 mg/dL (7-18) L Creatinine 0.5 MG/DL (0.55-1.30) L Estimat Glomerular Filtration Rate > 60 mL/min (>60) Glucose Level 113 MG/DL (74-106) H Calcium Level 8.3 MG/DL (8.5-10.1) L Total Bilirubin 0.3 MG/DL (0.2-1.0) Aspartate Amino Transf (AST/SGOT) 23 U/L (15-37) Alanine Aminotransferase (ALT/SGPT) 17 U/L (12-78) Alkaline Phosphatase 48 U/L (46-116) Total Protein 5.7 G/DL (6.4-8.2) L Albumin 3.2 G/DL (3.4-5.0) L Globulin 2.5 g/dL Albumin/Globulin Ratio 1.3 (1.0-2.7) Height (Feet): 5 Height (Inches): 3.00 Weight (Pounds): 130 General Appearance: WD/WN, no apparent distress, alert Cardiovascular: normal rate Respiratory/Chest: normal breath sounds, no respiratory distress Abdominal Exam: normal bowel sounds, non tender, soft Extremities: normal range of motion, non-tender Pacheco Kay NP Sep 21, 2019 11:27
[2019-09-21] MEDS: Dicyclomine HCl 10mg/5ml oral soln ORAL PRN (11:42)
[2019-09-21 12:00] VITALS: BP 154/90
[2019-09-21 16:00] VITALS: BP 150/84
--- NOTE | 2019-10-01 19:37 | Discharge Summary ---
Discharge Summary Hospital Course Date of Admission Sep 19, 2019 at 14:55 Date of Discharge Sep 21, 2019 at 17:35 Admitting Diagnosis INTRACTABLE VOMITING AND PAIN HPI Melissa Alexis is a 74 year old female who was admitted on Sep 19, 2019 at 14:55 for Intractable Vomiting And Pain Consultations Gastroenterology Hospital Course 74-year-old female with history of chronic pain syndrome presented with intractable abdominal pain and vomiting. Labs notable for hemoconcentration likely from dehydration, anion gap of 19, calcium of 10.1 and glucose 149. AST mildly elevated at 45. Rest of the blood work is essentially unremarkable. Lipase is normal. CT abdomen pelvis mostly unrevealing. CT head negative. Urine is also negative for infection and positive for ketones. Patient was admitted for Abdominal pain unknown etiology and intractable vomiting. CT reviewed, unremarkable. On labs had dehydration and elevated anion gap likely from vomiting. She was given fluids, PPI and antiemetics. Seen by gastroenterology, Rx for Bentyl given for 7 days, to follow up as outpatient. Her diet was advanced and tolerated. Patient would need MRI abdomen to evaluate adrenal glands that were suspicious on CT abdomen pelvis. On the day of discharge, she is in no distress. abdomen is soft, nt, nd. I spent 40 minutes on this encounter. Greater than 50% spent in counseling care coordination. Time of note may not reflect time of encounter. Discharge Medications Continued Medications: Alprazolam* (Xanax*) 0.25 Mg Tablet 0.25 MG ORAL TID PRN for For Anxiety, #30 TAB 0 Refills (This prescription has been renewed) Hui/Cell/Lipas/Malt/Prt/Lac/in (Digestive Enzymes Capsule) Unknown Strength Capsule Unknown Dose PO AC for digestive aid, CAP (This prescription has been renewed) Buprenorphine Hcl (Buprenorphine Hcl) 8 Mg Tab.subl 8 MG SL TID for narcotic dependence, TAB (This prescription has been renewed) Buspirone Hcl* (Buspirone Hcl*) 15 Mg Tablet 15 MG ORAL TWICE A DAY for anxiety, #60 TAB 0 Refills (This prescription has been renewed) Carisoprodol* (Carisoprodol*) 350 Mg Tablet 350 MG ORAL BID for muscle spasm, TAB (This prescription has been renewed) Clonazepam* (Klonopin*) 1 Mg Tablet 1 MG ORAL DAILY PRN for For Anxiety, #15 TAB 0 Refills (This prescription has been renewed) Gabapentin* (Gabapentin*) 300 Mg Capsule 600 MG ORAL FOUR TIMES A DAY for pain, CAP 0 Refills Levothyroxine Sodium* (Synthroid*) 100 Mcg Tablet 100 MCG ORAL DAILY for HYPOTHYROIDISM, TAB (This prescription has been renewed) Take in the morning on an empty stomach, at least 30 minutes before food. Methocarbamol* (Methocarbamol*) 750 Mg Tablet 750 MG ORAL THREE TIMES A DAY PRN for For Pain, TAB (This prescription has been renewed) Suvorexant (Belsomra) 20 Mg Tablet 20 MG PO BEDTIME PRN for Insomnia, TAB (This prescription has been renewed) Discharge Condition Upon Discharge: stable Discharge Disposition Patient was discharged to home Discharge Diagnoses: (1) Gastritis (2) Abdominal pain (3) Dehydration (4) Chronic pain Thang Cedillo M.D. Oct 01, 2019 19:37
== END 2019-09-21 17:35 | disposition home or self-care (01) | DRG 392 ==
LOC: EDBD 10:38 → EDUNIT# 10:38 → EDBEDREQ 14:09 → EMR 14:38 → 3E 14:55 → EDBEDREQ 15:52 → 3E 17:40
DX: K29.60 Other gastritis without bleeding (principal); E86.0 Dehydration; Z88.8 Allergy status to other drugs, medicaments and biological substances; G89.4 Chronic pain syndrome; K44.9 Diaphragmatic hernia without obstruction or gangrene; Z86.19 Personal history of other infectious and parasitic diseases; E03.9 Hypothyroidism, unspecified; Z95.0 Presence of cardiac pacemaker
CPT/HCPCS: 36415; 70450; 74176; 80053; 80061; 81003; 82962; 83036; 83690; 83735; 84484; 85007; 85025; 86710; 93005; 94640; 94664; 96361; 96374; 96375; 96376; 99285; J1815; J2405; J2765; J7030; J7620; J8499